=== PATIENT | male | born 1970 | race Caucasian/White ===

== ENCOUNTER 2016-08-31 08:51 | Inpatient (IN) | payer OTHER ==
[~2016-08-31] VITALS: Ht 182.9 cm; Wt 101.2 kg
[2016-08-31 12:40] LABS: *AMPHETAMINE, URINE NEGATIVE (NEGATIVE); *BARBITURATE, URINE NEGATIVE (NEGATIVE); *CANNABINOID, URINE NEGATIVE (NEGATIVE); *COCCAINE, URINE NEGATIVE (NEGATIVE); *OPIATE, URINE NEGATIVE (NEGATIVE); *PHENCYCLIDINE SCREEN,URINE NEGATIVE (NEGATIVE)
--- NOTE | 2016-08-31 12:44 | NUR ---
INTAKE ASSESSMENT Received patient in intake. He is AOX4, stable, and ambulatory. Vital signs WNL. Patient reports NKA. Patient has seizure hx and is epileptic with last seizure being 2 weeks ago. Patient brought home medications with him. Explained unit protocols and patient verbalized understanding. Will admit patient upon admission to third floor.
[2016-08-31] MEDS ORDERED: ONDANSETRON 4 MG/2 ML VIAL IM PRN (12:45)
[2016-08-31] MEDS ORDERED: MIRALAX 17 GM POWD.PACK PO PRN (12:45)
[2016-08-31] MEDS ORDERED: diphenhydrAMINE 50 MG CAPSULE PO PRN (12:45)
[2016-08-31] MEDS ORDERED: ACETAMINOPHEN 325 MG TABLET PO PRN (12:45)
[2016-08-31] MEDS ORDERED: LORAZEPAM 2 MG/1 ML VIAL IM PRN (12:45)
[2016-08-31] MEDS ORDERED: LOPERAMIDE HCL 2 MG CAPSULE PO PRN ×2 (12:45)
[2016-08-31] MEDS ORDERED: DICYCLOMINE HCL 20 MG TABLET PO PRN (12:45)
[2016-08-31] MEDS ORDERED: MAGNESIUM HYDROXIDE 30 ML LIQUID UDC PO PRN (12:45)
[2016-08-31] MEDS ORDERED: LORAZEPAM 1 MG TABLET PO PRN ×2 (12:45)
[2016-08-31] MEDS ORDERED: MAG HYDROX/AL HYDROX/SIMETH 30 ML LIQUID UDC PO PRN (12:45)
[2016-08-31] MEDS ORDERED: ONDANSETRON ODT 4 MG TAB.RAPDIS SL PRN (12:45)
[2016-08-31] MEDS ORDERED: CLONIDINE HCL 0.1 MG TABLET PO PRN (12:45)
[2016-08-31 12:50] VITALS: BP 137/81
[2016-08-31] MEDS ORDERED: THIAMINE HCL 200 MG/2 ML VIAL IM ONE (13:00)
--- NOTE | 2016-08-31 13:17 | NUR ---
ADMISSION NOTE VITAL SIGNS: BP 137/81 HR 89 TEMP 98.6 RR 16 O2 99% PAIN 4/10 WEIGHT 223 HEIGHT 6'0 NKA Patient is a 46 year old male admitted to [facility] on 08/31/16 at 1245. Patient is under the care of Doctor Wills for etoh and opiate dependence. Patient denies suicidal or homicidal ideations at this time. Patient denies being hospitalized within the last 30 days. Patient denies chest pain or SOB. Patient reports headache 4/10 on pain scale. Upon assessment, patient's skin is intact. COWS 3 CIWA 7 upon admission. AOX4 and able to answer necessary questions for admission process. Patient is full code and regular diet. Patient reports being epileptic with last seizure 2 weeks ago- side rails up and padded x2. Patient denies having a PCP- he reports being a patient of the [place] [facility]. Breathing is even and unlabored. Patient ambulates with steady gait. Patient states bowel habits are normal. Patient reports tx history in 2006 at [place]. Patient reports living with and children. History of depression, epilepsy, and insomnia. Patient does not smoke cigarettes. Dr. Wills has been notified and placed pt under observation. All needs have been met. Patient has been oriented to staff, unit, and room. All safety measures in place per hospital policy. Bed locked and in lowest position, side rails up x2 and padded, call wheeler within reach. WIll monitor closely. Substance Use: ETOH 1/2-1 pint daily for 6 months, last drank 3 beers on 08/29/16 Subuxone 8-16 mg daily for 6 months, last used 8 mg on 08/29/16
[2016-08-31] MEDS ORDERED: TRAZ-147 PO (13:48)
[2016-08-31] MEDS ORDERED: FLUO-120 PO (13:48)
[2016-08-31] MEDS ORDERED: SIMV20TA6 PO (13:48)
[2016-08-31] MEDS ORDERED: TEST200V4 IM (13:48)
[2016-08-31] MEDS ORDERED: LEVE500T20 PO (13:48)
[2016-08-31] MEDS ORDERED: METHOCARBAMOL 750 MG TABLET PO PRN (14:00)
[2016-08-31] MEDS ORDERED: BUPRENORPHINE HCL 2 MG TAB.SUBL SL PRN (14:00)
[2016-08-31 16:00] VITALS: BP 129/83
[2016-08-31 16:11] LABS: EOSINOPHILS # (AUTO) 0.1 K/uL (0.0-0.7); LYMPHOCYTES # (AUTO) 1.8 K/UL (0.8-4.8); WHITE BLOOD COUNT (AUTO) 9.6 K/UL (4.0-11.2)
[2016-08-31 16:14] LABS: ALANINE AMINOTRANSFERASE 25 U/L (16-63); ALKALINE PHOSPHATASE 64 U/L (50-136); AMYLASE 47 U/L (25-115); ASPARTATE AMINOTRANSFERASE 24 U/L (15-37); BILIRUBIN,TOTAL 0.8 mg/dL (0.2-1.0); CARBON DIOXIDE 31 mmol/L (21-32); CHLORIDE 102 mmol/L (98-107); CREATININE 1.4 mg/dL (0.6-1.3); GLUCOSE 108 mg/dL (74-106); LIPASE 201 U/L (73-393); MAGNESIUM 2.2 mg/dL (1.8-2.4); POTASSIUM 3.9 mmol/L (3.5-5.1); TOTAL PROTEIN, SERUM 7.9 g/dL (6.4-8.2); UREA NITROGEN, BLOOD 20 mg/dL (7-18)
[2016-08-31 16:16] LABS: BASOPHILS % (AUTO) 0.4 % (0.0-2.0); EOSINOPHILS % (AUTO) 0.6 % (0.0-7.0); HEMATOCRIT 49.4 % (40-50); HEMOGLOBIN 16.8 G/DL (14.0-18.0); LYMPHOCYTES % (AUTO) 19.1 % (20.5-51.5); MEAN CORPUSCULAR HEMOGLOBIN 32.1 UUG (27.0-31.0); MEAN CORPUSCULAR HGB CONC 34 g/dL (32.0-37.0); MEAN CORPUSCULAR VOLUME 94.6 FL (82.0-92.0); MONOCYTES # (AUTO) 0.5 K/UL (0.1-1.30); MONOCYTES % (AUTO) 5.7 % (0.0-11.0); NEUTROPHILS # (AUTO) 7.2 K/UL (1.8-8.9); NEUTROPHILS % (AUTO) 74.2 % (38.5-71.5); PLATELET COUNT (AUTO) 236 K/UL (150-450); RED BLOOD CELL COUNT(AUTO) 5.23 MIL/UL (4.7-6.1)
[2016-08-31 16:22] LABS: ETHANOL < 3 MG/DL (0-0)
[2016-08-31 16:25] LABS: THYROID STIMULATING HORMONE 2.332 mIU/mL (0.358-3.740)
[2016-08-31] MEDS: IBUPROFEN 400 MG TABLET PO PRN (18:12)
--- NOTE | 2016-08-31 18:13 | NUR ---
PRN MEDICATION PRN Motrin given for c/o headache 2/10 on pain scale. Will reassess
--- NOTE | 2016-08-31 18:36 | NUR ---
END OF SHIFT NOTE Admitted patient this shift for etoh and opiate dependence. Patient on PRNs only for now. Patient has PRN Ativan and Subutex available if needed. COWS 3 CIWA 7 upon admission. Vital signs stable. Patient is epileptic with seizure hx 2 weeks ago. Seizure precautions in place. Oxygen and suction at bedside if needed. PRN Motrin given for c/o headache. All needs have been met. All safety measures in place. Will endorse to submarine operator.
--- NOTE | 2016-08-31 18:48 | NUR ---
PRN REASSESSMENT Patient states his headache went away. 0/10 on pain scale.
--- NOTE | 2016-08-31 19:15 | NUR ---
START OF SHIFT Received 46 year old male patient admitted on 08/31/16 for ETOH and Suboxone dependency. Pt is full code with NKA. He reports a PMHx of epilepsy, depression, and insomnia. He reports using ETOH 1/2-1 pint daily for 6 months. Last dose was 3 beers on 08/29/16. Suboxone 8-16 mg daily for 6 months. Last dose was 8 mg on 08/29/16. Per endorsement and per MD, Ativan IM is not to be administered until seizure lasts greater than 2 minutes. Pt is alert and oriented x4, breathing is even and unlabored, safety measures in place. Will continue to monitor.
[2016-08-31 20:03] VITALS: BP 140/82
[2016-08-31] MEDS: LEVETIRACETAM 500 MG TABLET PO SCH (20:07)
[2016-08-31] MEDS: SIMVASTATIN 20 MG TABLET PO SCH (20:08)
[2016-08-31] MEDS ORDERED: LEVETIRACETAM 500 MG TABLET PO SCH (21:00)
[2016-08-31] MEDS ORDERED: LORAZEPAM 1 MG TABLET PO ONE (21:00)
[2016-09-01] VITALS: BP 129/81
[2016-09-01] MEDS: TRAZODONE 100 MG TABLET PO PRN (02:20)
--- NOTE | 2016-09-01 02:20 | NUR ---
PRN TRAZODONE Pt complains of inability to sleep. PRN Trazodone administered as ordered. Breathing is even and unlabored, respirations 16, safety measures in place. Will continue to monitor effectiveness.
--- NOTE | 2016-09-01 03:20 | NUR ---
PRN TRAZODONE REASSESSMENT PRN medication effective. Pt is lying in bed with eyes closed noted to be asleep. Respirations 16, breathing is even and unlabored. Safety measures in place. Will monitor.
--- NOTE | 2016-09-01 04:00 | NUR ---
VITALS/COWS/CIWA 0400 vitals refused. COWS and CIWA deferred d/t pt lying in bed with eyes closed noted to be asleep. Respirations 16, breathing is even and unlabored. Safety measures in place. Will monitor.
--- NOTE | 2016-09-01 07:09 | NUR ---
END OF SHIFT Pt is a 46 year old male patient admitted on 08/31/16 for ETOH and Suboxone dependency. Pt is full code with NKA. He reports a PMHx of epilepsy, depression, and insomnia. He is not currently on a taper but has PRN medications available. Pt noted with bipap for sleep apnea. At 0220 pt received PRN Trazodone. He slept a total 9 hrs, Intake: 1000mL, Void: x1, BM: 0. Pt remains alert and oriented x4, breathing is even and unlabored, safety measures in place. Endorsed to oncoming shift.
--- NOTE | 2016-09-01 07:56 | NUR ---
BEGINNING OF SHIFT Patient endorsement report received from maintenance supervisor 2nd shift nurse, all pertinent information discussed. Patient is a 46 year old male admitted on: 08/31/2016, with admitting Dx: etoh/opiate dependence, Patient currently with no ogoing taper continues under close observation, will monitor cow/ciwa scores and vital signs closely. As per maintenance supervisor 2nd shift patient received PRN: Trazodone during maintenance supervisor 2nd shift, medication was effective Patient slept for 09 hours., as per maintenance supervisor 2nd shift last cow score of: 3 and last ciwa score of: 5. Patient received, awake alert and oriented x4. Educated regarding plan of care for the day and medication regimen. Safety measures in place. Fall and seizure precautions observed at all times. Will continue to monitor closely.
[2016-09-01 09:00] VITALS: BP 136/86
[2016-09-01] MEDS ORDERED: TUBERCULIN,PURIF.PROT.DERIV. 5 TU/0.1 ML TEST ID ONE (09:00)
[2016-09-01] MEDS: LEVETIRACETAM 500 MG TABLET PO SCH ×2 (09:11→21:51)
[2016-09-01] MEDS: THIAMINE HCL 100 MG TABLET PO SCH (09:11)
[2016-09-01] MEDS: GABAPENTIN 300 MG CAPSULE PO SCH ×3 (09:11→21:51)
[2016-09-01] MEDS: MULTIVITAMINS,THERAPEUTIC TABLET PO SCH (09:11)
[2016-09-01] MEDS: FOLIC ACID 1 MG TABLET PO SCH (09:11)
[2016-09-01 13:21] VITALS: BP 124/67
[2016-09-01] MEDS ORDERED: BUPRENORPHINE HCL 2 MG TAB.SUBL SL PRN (14:45)
[2016-09-01] MEDS ORDERED: LORAZEPAM 1 MG TABLET PO PRN ×2 (14:45)
[2016-09-01] MEDS: FLUOXETINE HCL 20 MG CAPSULE PO SCH (15:05)
[2016-09-01 16:00] VITALS: BP 131/68
--- NOTE | 2016-09-01 19:01 | NUR ---
END OF SHIFT Patient alert and oriented x4, vital signs were stable during shift. Patient with admitting Dx: ETOH/opiate dependence, currently with no ongoing taper, continues under close observation. Patient compliant with therapeutic plan of care. Patient 0900 assessment presented with: mild bone and joint aches, tremors that can be felt but not seen, and mild anxiety with cow score of: 3 and ciwa score of: 3; 1300 assessment patient presented with: mild bone and joint aches, tremors that can be felt but not seen, and mild anxiety with cow score of: 3 and ciwa score of: 3; 1700 assessment patient presented with: mild bone and joint aches, tremors that can be felt but not seen, and mild anxiety with cow score of: 3 and ciwa score of: 3. All due medications administered as ordered, well tolerated, no ASE noted. No PRN medications were administered during shift. Fall and seizure precautions observed at all times. Patient encouraged to attend group therapies/sessions to learn new coping skills to prevent relapse, denies SI/HI. Patients safety measures in place. Call light kept with in reach, fall and seizure precautions observed at all times. Alll needs met and rendered. Patient endorsed to middleware systems architect nurse, all pertinent information discussed.
--- NOTE | 2016-09-01 19:30 | NUR ---
START OF SHIFT Pt is 46 year old male admitted on 08/31/16 for ETOH and Suboxone dependency. Pt is full code with NKA. He reports a PMH of epilepsy, depression, and insomnia. Per endorsement and per MD order, Ativan IM is not to be administered until seizure lasts greater than 2 minutes. Pt is alert and oriented x4, breathing is even and unlabored, Last COWS=3,CIWA=3. All Safety measures in place, call light within reach, will continue to monitor.
[2016-09-01 20:00] VITALS: BP 128/86
--- NOTE | 2016-09-01 21:00 | NUR ---
2100 MEDS ATTEMPTED TO GIVE 2100 MEDS.PT NOTED TO BE IN DEEP SLEEP.BREATHING IS EVEN AND NON LABORED.NO S/S OF DISTRESS NOTED.WII TRY LATER.
[2016-09-01] MEDS: SIMVASTATIN 20 MG TABLET PO SCH (21:51)
[2016-09-01] MEDS ORDERED: LORAZEPAM 1 MG TABLET PO ONE (22:00)
--- NOTE | 2016-09-01 22:05 | NUR ---
PT OBSERVED TO BE STILL SLEEPING WITH HIS CPAP AT 2149.APPEARS TO BE LETHARGIC,RESPONSIVE TO VERBAL STIMULI.HE TOOK HIS HS MEDICATIONS ORDERED WITHOUT ANY PROBLEM AT 2150. WHEN ASKED WHY HE IS SO SLEEPY,PT STATED "I HAD A SEIZURE".PT VERBALIZED THAT HE IS UNABLE TO MOVE HIS RIGHT HAND. ON FURTHER QUESTIONING,PT STATED THAT THIS HAS HAPPENED BEFORE.HIS RIGHT HAND GETS NUMB AND HE CANNOT MOVE IT AFTER HE HAS A SEIZURE.PT STATED "I HAVE EPILEPSY.MY HAND WILL BE OKAY AFTER 1 HOUR" V/S CHECKED. B/P=120/75,HR=79,R=16.DR BRIONES NOTIFIED.ORDER NOTED FOR ATIVAN 2 MG PO X 1.ATIVAN GIVEN ORDERED.PT PLACED ON 1:1 CLOSE OBSERVATION WITH MALE STAFF FOR SAFETY.WILL CONTINUE TO MONITOR.
[2016-09-01] MEDS ORDERED: LORAZEPAM 1 MG TABLET ONE (22:13)
--- NOTE | 2016-09-01 22:40 | NUR ---
PT WAS NOTED TO HAVE A SEIZURE BY 1:1 STAFF.STAFF REPORTED THAT PT'S BODY WAS SHAKING AND HIS FACE TURNED RED FOR LESS THAN 1 MINUTE.V/S TAKEN.B/P=124/77,HR=62,R=14,O2 SAT=97%.DR BRIONES IS AWARE THAT PT HAS EPILEPSY AND HE WAS NOTIFIED AGAIN ABOUT THIS RECENT EPISODE.NO NEW ORDERS NOTED.SITTER REMAINS AT BEDSIDE.WILL CONTINUE TO MONITOR FOR SAFETY.
--- NOTE | 2016-09-01 23:15 | NUR ---
PT IS MORE AWAKE AND ALERT,STATES "FELLING BETTER".HE IS ABLE TO MOVE HIS RIGHT HAND WITHOUT ANY ASSISTANCE.NO S/S OF DISTRESS NOTED.REMAINS ON CLOSE OBSERVATION WITH MALE STAFF,WILL BE MONITORED FOR SAFETY.
[2016-09-02] VITALS: BP 134/84
[2016-09-02 04:00] VITALS: BP 106/66
--- NOTE | 2016-09-02 06:56 | NUR ---
END OF SHIFT END OF SHIFT Pt is 46 year old male admitted on 08/31/16 for ETOH and Suboxone dependency. Pt is full code with NKA. He reports a PMH of epilepsy, depression, and insomnia. Per endorsement and per MD order, Ativan IM is not to be administered until seizure lasts greater than 2 minutes. Pt is alert and oriented x4, breathing is even and unlabored, Last COWS=2,CIWA=2.Pt had a seizure last night while sleeping in bed and was unable to move his right hand .Seizure lasted for less than 1 minute.Pt later stated that it happens all the time,at least 2-3 times a week and then he can move his hand after an hour.MD was notified,one time dose of Ativan 2 mg PO was given with good effect.Pt slept 8 hrs,still sleeping; fluid intake was 1791 mls,voided x 1.No c/o pain noted.No PRN meds given.All Safety measures in place, call light within reach, sitter at bedside,Pt will be monitored for safety.
--- NOTE | 2016-09-02 07:26 | NUR ---
BEGINNING OF SHIFT Patient endorsement report received from slot shift manager nurse, all pertinent information discussed. Patient is a 46 year old male admitted on: 08/31/2016, with admitting Dx: etoh/opiate dependence, Patient currently with no ogoing taper continues under close observation, will monitor cow/ciwa scores and vital signs closely. As per slot shift manager patient received PRN: Ativan as ordered during slot shift manager, per slot shift manager patient s/p one episode of seizure, fall and seizure precautions observed closely at all times. Patient slept for 8 hours., as per slot shift manager last cow score of: 2 and last ciwa score of: 2. Patient received, awake alert and oriented x4. Educated regarding plan of care for the day and medication regimen. Safety measures in place. Fall and seizure precautions observed at all times. Will continue to monitor closely.
[2016-09-02 08:08] LABS: CREATININE 1.2 mg/dL (0.6-1.3); POTASSIUM 4.4 mmol/L (3.5-5.1)
[2016-09-02 08:26] VITALS: BP 107/60
[2016-09-02] MEDS: GABAPENTIN 300 MG CAPSULE PO SCH ×3 (08:45→20:57)
[2016-09-02] MEDS: THIAMINE HCL 100 MG TABLET PO SCH (08:45)
[2016-09-02] MEDS: FOLIC ACID 1 MG TABLET PO SCH (08:45)
[2016-09-02] MEDS: LEVETIRACETAM 500 MG TABLET PO SCH ×2 (08:45→20:57)
[2016-09-02] MEDS: MULTIVITAMINS,THERAPEUTIC TABLET PO SCH (08:45)
[2016-09-02] MEDS: FLUOXETINE HCL 20 MG CAPSULE PO SCH (08:45)
[2016-09-02 10:08] LABS: HEPATITIS B SURFACE AG Negative (Negative)
[2016-09-02 12:30] VITALS: BP 104/63
--- NOTE | 2016-09-02 12:30 | NUR ---
MD COMMUNICATION Patient was seen by Dr. joseph, as per MD patient to begin a 2 day Ativan and 2 day Subutex taper as ordered. Will continue to monitor closely. safety measures in place.
[2016-09-02] MEDS: LORAZEPAM 1 MG TABLET PO SCH ×3 (13:06→20:56)
[2016-09-02] MEDS: BUPRENORPHINE HCL 2 MG TAB.SUBL SL SCH ×3 (13:06→21:00)
[2016-09-02 16:19] VITALS: BP 110/68
--- NOTE | 2016-09-02 17:00 | NUR ---
ENDORSED CARE Patient alert and oriented x4, vital signs were stable during shift. Patient with admitting Dx: ETOH/opiate dependence, patient was started on an Ativan and Subutex taper as ordered during shift, first dose administered at 1300 as ordered, well tolerated, no ASE noted. and continues under close observation. Patient was encouraged to increase PO fluid intake as tolerated. Patient compliant with therapeutic plan of care. Patient s/p seizure activity on 09/01/2016, fall and seizure precautions observed at all times, no seizure activity noted during shift. Patient 0900 assessment presented with tremors that can be felt but not seen, mild anxiety, and barely sweating with cow score of: 2 and ciwa score of: 3; 1300 assessment patient presented with: tremors that can be felt but not seen, mild anxiety and mild bone and joint aches, with cow score of: 3 and ciwa score of: 2. 1700 assessment patient presented with: tremors that can be felt but not seen, mild anxiety and mild bone and joint aches, with cow score of: 3 and ciwa score of: 2. All due medications administered as ordered, well tolerated, no ASE noted. No PRN medications were administered during shift. Fall and seizure precautions observed at all times. Patient encouraged to attend group therapies/sessions to learn new coping skills to prevent relapse, denies SI/HI. Patients safety measures in place. Call light kept with in reach, fall and seizure precautions observed at all times. all needs met and rendered. Patient endorsed to nurse, all pertinent information discussed.
--- NOTE | 2016-09-02 17:00 | NUR ---
Assumed Care: Assumed care for the patient at this time. Patient received all due meds at 1700. VS stable. Compliant with care and treatment. All pertinent information discussed. Patient is in his room at this time watching TV. Will continue to monitor the patient and continue with fall and seizure precautions.
--- NOTE | 2016-09-02 18:32 | NUR ---
End of Shift Notes: Patient is a 46 year old male admitted for ETOH and Subaxone dependence who was placed on a 2-day Ativan and 2-day Subutex taper that was started today at 1300. No adverse reactions noted. Patient is tolerating taper well. Withdrawal symptoms were closely monitored. Last COWS 3, CIWA 2. Per patient, Ativan and Subutex has been helping him with his withdrawal symptoms. Compliant with care and treatment. All needs met and attended. On fall and seizure precautions.
[2016-09-02 20:00] VITALS: BP 137/88
--- NOTE | 2016-09-02 20:00 | NUR ---
START OF SHIFT NOTE PATIENT JUST HAD A SHOWER. PATIENT ALERT AND ORIENTED X 4. PATIENT PRESENTS WITH FLAT AFFECT MOOD. PATIENT STATES HE'S TIRED AND HAVE HEADACHE /10. NO N/V. RECEIVED REPORT FROM DAY SHIFT NURSE. PATIENT IS A 46 YEAR OLD MALE, ADMITTED FOR SUBSTANCE ABUSE DEPENDENCE. PATIENT IS FULL CODE, REGULAR DIET AND NO KNOWN ALLERGY. PATIENT IS ON 2 DAY ATIVAN AND 2 SUBUTEX TAPER. UPON ADMISSION, PATIENT REPORTED USING SUBOXONE 8-16 MG FOR 6 MONTHS AND DRINKS 1/2-PINT FOR 6 MONTHS. PATIENT REPORTS PMH OF EPILEPSY, DEPRESSION AND INSOMNIA. ON FALL/SEIZURE PRECAUTION. SKIN INTACT. LAST COWS 3 AND CIWA 2. PATIENT DID NOT RECEIVE ANY PRN MEDICATION . NO EPISODE OF SEIZURE DURING THE DAY. SAFETY MEASURES IN PLACE.CALL LIGHT IN REACH. WILL CONTINUE TO MONITOR
[2016-09-02] MEDS: SIMVASTATIN 20 MG TABLET PO SCH (20:57)
[2016-09-03] VITALS: BP 120/78
[2016-09-03] MEDS: TRAZODONE 100 MG TABLET PO PRN (02:31)
--- NOTE | 2016-09-03 02:31 | NUR ---
PRN DESYREL ADMINISTRATION PATIENT REQUESTS FOR SLEEP AID. PRN DESYREL GIVEN. WILL MONITOR FOR EFFECTIVENESS
--- NOTE | 2016-09-03 03:31 | NUR ---
FARSHAD ERAZO RE-ASSESSMENT PATIENT ASLEEP AT THIS TIME. RESPIRATION EVEN AND UNLABORED. SAFETY MEASURES IN PLACE. CALL LIGHT IN REACH. WILL CONTINUE TO MONITOR.
[2016-09-03 04:00] VITALS: BP 134/92
--- NOTE | 2016-09-03 07:17 | NUR ---
END OF SHIFT NOTE PATIENT REMAIN ALERT AND ORIENTED X 4. PATIENT PRESENTS WITH FLAT AFFECT MOOD. PATIENT STATES HE'S TIRED AND HAVE HEADACHE /10. NO N/V BEGINNING OF SHIFT. PATIENT IS A 46 YEAR OLD MALE, ADMITTED FOR SUBSTANCE ABUSE DEPENDENCE. PATIENT IS FULL CODE, REGULAR DIET AND NO KNOWN ALLERGY. PATIENT IS ON 2 DAY ATIVAN AND 2 SUBUTEX TAPER. UPON ADMISSION, PATIENT REPORTED USING SUBOXONE 8-16 MG FOR 6 MONTHS AND DRINKS 1/2-PINT FOR 6 MONTHS. PATIENT REPORTS PMH OF EPILEPSY, DEPRESSION AND INSOMNIA. ON FALL/SEIZURE PRECAUTION. SKIN INTACT.PATIENT WAS GIVEN PRN TRAZADONE FOR SLEEP. NO EPISODE OF SEIZURE DURING SHIFT. PATIENT COMPLIANT WITH MEDICATIONS. SAFETY MEASURES IN PLACE.CALL LIGHT IN REACH. WILL CONTINUE TO MONITOR .SLEPT 4 HOURS. FLUID INTAKE 1,400 ML. VOIDED X 2. NO BM. LAST COWS 2 AND CIWA 1.
--- NOTE | 2016-09-03 07:29 | NUR ---
BEGINNING OF SHIFT Patient endorsement report received from hourly shift nurse, all pertinent information discussed. Patient is a 46 year old male admitted on: 08/31/2016, with admitting Dx: etoh/opiate dependence, Patient currently with ongoing 2 day ativan and 2 day subutex, scheduled to begin day 2 of taper , will monitor cow/ciwa scores and vital signs closely. As per hourly shift patient received PRN: Trazodone as ordered during hourly shift, fall and seizure precautions observed closely at all times. Patient slept for 4 hours., as per hourly shift last cow score of: 2 and last ciwa score of: 1. Patient received, awake alert and oriented x4. Educated regarding plan of care for the day and medication regimen. Safety measures in place. Fall and seizure precautions observed at all times. Will continue to monitor closely.
[2016-09-03 08:07] VITALS: BP 129/81
[2016-09-03] MEDS: FOLIC ACID 1 MG TABLET PO SCH (08:41)
[2016-09-03] MEDS: GABAPENTIN 300 MG CAPSULE PO SCH ×3 (08:41→20:15)
[2016-09-03] MEDS: MULTIVITAMINS,THERAPEUTIC TABLET PO SCH (08:41)
[2016-09-03] MEDS: LEVETIRACETAM 500 MG TABLET PO SCH ×2 (08:41→20:14)
[2016-09-03] MEDS: FLUOXETINE HCL 20 MG CAPSULE PO SCH (08:41)
[2016-09-03] MEDS: THIAMINE HCL 100 MG TABLET PO SCH (08:41)
[2016-09-03] MEDS ORDERED: LORAZEPAM 1 MG TABLET PO SCH (09:00)
[2016-09-03] MEDS ORDERED: BUPRENORPHINE HCL 2 MG TAB.SUBL SL SCH (09:00)
[2016-09-03] MEDS ORDERED: LEVE500T9 PO ×2 (11:52)
[2016-09-03] MEDS ORDERED: PRAZ1CAP2 PO (11:52)
[2016-09-03] MEDS ORDERED: GABA-534 PO (11:52)
[2016-09-03] MEDS ORDERED: METH-406 PO (11:52)
[2016-09-03 12:51] VITALS: BP 123/88
[2016-09-03 13:30] LABS: *AMPHETAMINE, URINE NEGATIVE (NEGATIVE); *BARBITURATE, URINE NEGATIVE (NEGATIVE); *CANNABINOID, URINE NEGATIVE (NEGATIVE); *COCCAINE, URINE NEGATIVE (NEGATIVE); *OPIATE, URINE NEGATIVE (NEGATIVE); *PHENCYCLIDINE SCREEN,URINE NEGATIVE (NEGATIVE)
[2016-09-03] MEDS: IBUPROFEN 400 MG TABLET PO PRN (14:59)
--- NOTE | 2016-09-03 14:59 | NUR ---
PRN MOTRIN Patient c/o back ache 08/09, provided with non pharmacological interventions with no relief, administered Motrin as ordered, will monitor effectiveness of medication, safety measures in place.
--- NOTE | 2016-09-03 15:59 | NUR ---
MOTRIN REASSESSMENT Patient reports medication with relief, current pain level 0/10, will continue to monitor closely. safety measures in place.
[2016-09-03 17:32] VITALS: BP 136/86
--- NOTE | 2016-09-03 18:55 | NUR ---
START OF SHIFT NOTE: Patient endorsed by day shift nurse. Report received. Patient is a 46 year old male admitted to [facility] on 08/31/2016 for ETOH and buprenorphine dependence, started ordered 2 day Ativan and 2 day Subutex taper since 09/02/2016, which tolerated well without ASE. Patient remains compliant with treatment, medications, and diet regime. Patient reports NKA, is on Regular diet, is on Full Code, is on Fall and Seizures Precautions. Patient reports Past Medical History: Traumatic brain injury, Epilepsy, Obstructive sleep apnea, Dyslipidemia, Posttraumatic stress disorder, Depressive disorder. Past Surgical History: Left shoulder repair, Left leg shrapnel removal, Cervical spine plate placement. Patient reports treatment history at "[facility] in 2006. Substance use history: ETOH PO:"1-2 pint every day last six months. Last used 3 beers on 08/29/2016". Suboxone PO:"8-16 mg every day last 6 months. Last used 8 mg on 08/29/16". Upon endorsement, patient is in his room alert and oriented x4, ambulatory with stable gait, cooperative. CIWA 5. Patient presented with anxiety barely sweating. VSWNL. Respirations even and unlabored. Lung Sounds are clear bilaterally. Patient denies SOB and chest pain. Heart rate regular. Bowel Sounds active in all 4 quadrants. Last BM was today, on 09/03/16 at 1700. Skin is intact, warm and dry to touch. Encouraged to fluids intake as tolerated. Patient attended groups activities. Patient is scheduled for discharging tomorrow, 09/04/2016. UDS test results placed on chart. All needs met. Safety measures in the place. Call light within reach, bed in the lowest position and locked, padded rails up bilaterally. Will continue to monitor closely.
--- NOTE | 2016-09-03 18:56 | NUR ---
END OF SHIFT Patient alert and oriented x4, vital signs were stable during shift. Patient with admitting Dx: ETOH/opiate dependence, patient was started on an Ativan and Subutex taper as ordered during shift, Patient completed tapers and is scheduled to be discharged tomorrow, noted self motivated towards sobriety. continues under close observation. Patient was encouraged to increase PO fluid intake as tolerated. Patient compliant with therapeutic plan of care. No seizure activity noted during shift continues with fall and seizure precautions observed at all times. . Patient 0900 assessment presented with: mild bone and joint aches, tremors that can be felt but not seen, moist eyes, and barely sweating with cow score of :4 and ciwa score of: 3; 1300 assessment patient presented with: tremors that can be felt but not seen and mild anxiety with cow score of: 3 and ciwa score of: 2; 1700 assessment patient presented with: tremors that can be felt but not seen, and mild anxiety with cow score of: 2 and ciwa score of: 2. All due medications administered as ordered, well tolerated, no ASE noted.Adminstered PRN: Motrin as ordered for back ache, medication effective one hour post administration. Fall and seizure precautions observed at all times. Patient encouraged to attend group therapies/sessions to learn new coping skills to prevent relapse, denies SI/HI. Patient is scheduled to be discharged tomorrow, noted self motivated towards sobriety. Patients safety measures in place. Call light kept with in reach, fall and seizure precautions observed at all times. all needs met and rendered. Patient endorsed to night baker nurse, all pertinent information discussed.
[2016-09-03 20:00] VITALS: BP 117/86
[2016-09-03] MEDS: SIMVASTATIN 20 MG TABLET PO SCH (20:17)
[2016-09-03] MEDS ORDERED: PRAZOSIN HCL 1 MG CAPSULE PO SCH (21:00)
[2016-09-04] VITALS: BP 110/81
[2016-09-04 04:00] VITALS: BP 109/71
--- NOTE | 2016-09-04 04:57 | NUR ---
PRN CLONIDINE 0.1 MG 1 TAB ADMINISTRATION Patient reports increased anxiety and asked aid. Patient was assessed. VSWNL. PRN Clonidine 0.1 mg 1 tab PO administrated as ordered with full glass of water. Patient tolerated well. All needs met. Safety measures on place. Call light within reach, bed in lowest position and locked, padded rails up bilaterally rails up bilaterally. Will continue to monitor closely.
--- NOTE | 2016-09-04 05:57 | NUR ---
RE-ASSESSMENT Patient is sleeping. RR: 17. Respirations even and unlabored. PRN Clonidine PO was effective. All needs met. Safety measures on place. Call light within reach, bed in lowest position and locked, padded rails up bilaterally rails up bilaterally. Will continue to monitor closely.
--- NOTE | 2016-09-04 07:21 | NUR ---
END OF SHIFT NOTE: Patient endorsed to day shift nurse in stable condition. Report given. Patient is a 46 year old male admitted to [facility] on 08/31/2016 for ETOH and Buprenorphine dependence, continue ordered 2 day Ativan and 2 day Subutex taper since 09/02/2016, which tolerated well without ASE. Patient remains compliant with treatment, medications, and diet regime. Patient reports NKA, is on Regular diet, is on Full Code, is on Fall and Seizures Precautions. Past Medical History: Traumatic brain injury, Epilepsy, Obstructive sleep apnea, Dyslipidemia, Posttraumatic stress disorder, Depressive disorder. Past Surgical History: Left shoulder repair, Left leg shrapnel removal, Cervical spine plate placement. Patient reports treatment history at "[facility] in 2006". Substance use history: ETOH PO: "1-2 pint every day last six months. Last used 3 beers on 08/29/2016". Suboxone PO: "8-16 mg every day last 6 months. Last used 8 mg on 08/29/16". Upon last assessment at 0400: COWS 5, CIWA 5. Patient presented with anxiety, agitation, nervousness, tremors that can be felt, yawning, and sweating. Patient denies SI/HI. VSWNL. Respirations even and unlabored. Patient denies SOB and chest pain. Skin is intact, warm and dry to touch. Encouraged to fluids intake as tolerated. Patient attended groups activities. Patient is scheduled for discharging today, 09/04/2016. UDS test results placed on chart. PRN Clonidine PO administrated for anxiety was effective. Patient slept 7 hours, intake 1,301 ml, voided x3. All needs met. Safety measures in the place. Call light within reach, bed in the lowest position and locked, padded rails up bilaterally.
[2016-09-04 08:00] VITALS: BP 128/84
--- NOTE | 2016-09-04 08:10 | NUR ---
START OF SHIFT: RECEIVED PT A/O X 4. HE PRESENTS WITH ANXIOUS MOOD AND CONGRUENT AFFECT. TAPERS COMPLETED. CIWA 3 COWS 2. HE STATES HE DID NOT SLEEP WELL LAST NIGHT AND IS A LITTLE ANXIOUS ABOUT DISCHARGING TODAY TO PROMISES BUT STATES HE IS GOING TO DO WHAT IS REQUIRED TO STAY CLEAN. WILL CONTINUE TO MONITOR AND PROVIDE SUPPORT. DISCHARGE PLANNING IN PROGRESS.
[2016-09-04] MEDS: THIAMINE HCL 100 MG TABLET PO SCH (08:55)
[2016-09-04] MEDS: GABAPENTIN 300 MG CAPSULE PO SCH (08:55)
[2016-09-04] MEDS: LEVETIRACETAM 500 MG TABLET PO SCH (08:55)
[2016-09-04] MEDS: FLUOXETINE HCL 20 MG CAPSULE PO SCH (08:55)
[2016-09-04] MEDS: MULTIVITAMINS,THERAPEUTIC TABLET PO SCH (08:55)
[2016-09-04] MEDS: FOLIC ACID 1 MG TABLET PO SCH (08:55)
--- NOTE | 2016-09-04 08:58 | NUR ---
CHANGE OF LOC. PT BECAME UNRESPONSIVE. RESPIRATIONS EVEN AND UNLABORED. VS ASSESSED AND WNL. RAPID RESPONSE CALLED. PT STARTED WAKING UP AFTER ABOUT 1 MINUTE. HE BECAME A/O X 4. AFTER A FEW MINUTES. NO PAIN OR DISCOMFORT NOTED. TO ASSESS PT.PT WAS ABLE TO TAKE AM MEDS PO. WILL CONTINUE TO MONITOR.
--- NOTE | 2016-09-04 10:10 | NUR ---
DISCHARGE: PT A/O X 4. HE WAS MEDICALLY CLEARED FOR DISCHARGE. HE DENIES S/I AND H/I. BELONGINGS RETURNED. EDUCATED PT ON DISCHARGE INSTRUCTIONS AND MEDICATIONS. PT EXPRESSED VERBAL UNDERSTANDING OF EDUCATION. ONLINE MARKETER ESCOTRTED PT TO LOBBY AT 10:04 WHERE HE WAS TRANSPORTED BY [facility].
[2016-09-04] MEDS ORDERED: LEVE500T9 PO (11:21)
== END 2016-09-04 10:04 | disposition other institution (70) | DRG 895 ==
LOC: SRC 11:34
PROVIDERS: ADMIT Internal Medicine; ATTEND Internal Medicine
PROC: HZ41ZZZ Group Counseling for Substance Abuse Treatment, Behavioral (ICD-10-PCS; principal; 2016-08-31)
PROC: HZ2ZZZZ Detoxification Services for Substance Abuse Treatment (ICD-10-PCS; principal; 2016-08-31)
PROC: HZ31ZZZ Individual Counseling for Substance Abuse Treatment, Behavioral (ICD-10-PCS; 2016-09-01)
DX: F10.230 Alcohol dependence with withdrawal, uncomplicated (principal); N17.9 Acute kidney failure, unspecified; F11.23 Opioid dependence with withdrawal; Y90.9 Presence of alcohol in blood, level not specified; Z87.820 Personal history of traumatic brain injury; G40.909 Epilepsy, unspecified, not intractable, without status epilepticus; Z79.899 Other long term (current) drug therapy; G47.33 Obstructive sleep apnea (adult) (pediatric); E78.5 Hyperlipidemia, unspecified; Z83.3 Family history of diabetes mellitus; Z82.49 Family history of ischemic heart disease and other diseases of the circulatory system; F43.10 Post-traumatic stress disorder, unspecified; F32.9 Major depressive disorder, single episode, unspecified; R73.9 Hyperglycemia, unspecified; R40.0 Somnolence; T42.6X5A Adverse effect of other antiepileptic and sedative-hypnotic drugs, initial encounter; Y92.89 Other specified places as the place of occurrence of the external cause
CPT/HCPCS: 36415; 70030-TC; 80307; 83690; 83735; 84443; 85025; 86580; 86592; 86705; 86803; 87340; 87806; A4663; G0480; Q0162; Q0163